=== PATIENT | male | born 1975 | race Caucasian/White ===

== ENCOUNTER 2016-08-08 15:30 | Emergency (ER) | payer OTHER ==
[~2016-08-08] VITALS: Ht 198.1 cm; Wt 136.4 kg
--- NOTE | 2016-08-08 15:23 | ED.REPORT ---
HPI-Overdose/Alcohol Toxicity Date of Service Aug 08, 2016 ED Provider: Colby Jenkins MD Patient is a 41 year old male with no pertinent past medical history who presents to the ED via EMS after an unintentional drug overdose of 60mg of OxyContin after 2pm this afternoon. His daughter found the patient unconscious, with unknown time down, and called EMS immediately. Patient was found to have agonal breathing but he did have a pulse. Patient awoke following administration of 2mg of Narcan and was able to ambulate at the scene. Patient reports experiencing nausea, vomiting, and left sided chest pain since awaking. He describes the chest pain as if he was punched in the chest. He denies shortness of breath. Patient admits that he bought the OxyContin off the street and that the woman who sold it to him mentioned the word Fentanyl. His later reports that he has used this medication multiple times in the past few days but he does not use narcotics regularly. Nursing Notes Stated Complaint: OVERDOSE Nursing Notes Reviewed: Yes (Merlin, meds not reconicled) Allergies: Coded Allergies: Penicillins (Verified Allergy, Unknown, 08/08/16) No Active Prescriptions or Reported Meds General Time Seen by Provider: 16:40 Chief Complaint Drug overdose Modifying Factors: Vomited post ingestion (per EMS, 1 episode) Hx Obtained From: Patient, EMS Arrived By: Ambulance Onset Occurred: 1 - 4 hours ago Symptom Duration: Since onset Location: : Chest Quality: Painful Severity: Current: Mild Associated with: Reports: Chest pain, Nausea Recent Healthcare: No recent doctor visit, No recent hospitalization Risk-Overdose/Alcohol Tox Risk Notes: Patient denies any SI Accidental recreation OD Past Medical History Past Medical History Denies: Coronary artery disease, Diabetes mellitus, Gastritis, Hyperlipidemia Past Surgical History Right knee surgery Reports: Appendectomy Smoking History Current Every Day Smoker Social History Alcohol Use: "Social" Drug Use: THC Other Social History: Good social support, , Lives with children, Local resident Ambulatory Status Independent Review of Systems Respiratory: Denies: Shortness of breath Cardiovascular: Reports: Chest pain (L side), Denies: Syncope GI: Reports: Nausea, Vomiting Neurologic: Reports: Change LOC Psychiatric: Denies: Suicidal ideation Complete sys rev & neg: except as marked. Physical Exam Initial Vital Signs Vital Signs (First) Date Time Temp Pulse Resp B/P Pulse Ox O2 Delivery O2 Flow Rate FiO2 08/08/16 15:41 36.6 89 16 155/93 96 Room Air Initial VS: Reviewed, Vital signs abnormal (for EMS, ) Head / Eyes: Atraumatic, Normocephalic, PERRL ENT: Conjunctiva normal, No scleral icterus Extremities: Vascular intact, Neuro intact, No swelling, No tenderness Skin: Warm, Dry, No cyanosis General/Constitutional: Awake, Alert, No acute distress Respiratory / Chest: Atraumatic, Breath sounds NL, Breath sounds = bilat, No respiratory distress, No rales, No rhonchi, No wheezing Cardiovascular: Heart rate NL, Regular rhythm, Heart sounds NL Abdomen: Atraumatic, Soft, Non-tender Neurologic: Oriented X3, Speech NL, No motor deficits, No sensory deficits, CN II - XII intact Psychiatric: Affect NL, Mood NL, Not suicidal, Not homicidal Interpretation & Diagnostics ECG Interpretation Time: 15:42 Interpreted by: ED physician Normal ECG Interpretation: Normal ECG w/ rate of... (77), No change from prior ECGs Re-Eval/Medical Decision Med Decision/Clinical Course This is a 41-year-old healthy male who was found unresponsive by family member following an intentional snorting of what he thought was OxyContin tablets. He was found unresponsive, and may have had some brief bystander CPR, but had a pulse and responded to Narcan by EMS. He then developed a little bit of nausea times one and vomited, but reports he feels okay, just embarrassed now. he reports a trace bit of left rib soreness following the vomiting, arrival states he has no complaints and he feels okay-with the exception of being embarrassed. He declined any further medication. The patient had a normal exam, is awake alert and appropriate-without overt signs of withdrawal. Reports he uses sporadically. He was observed, had no recurrence of respiratory depression versus clinical signs of re-intoxication. He was seen by the INFORMATION ENGINEER and offered resources, but declined them. He had an EKG which was normal, with no ischemic findings. I am not finding indication for chest radiograph. (Normal vitals, no tenderness , clear lungs, and only trace soreness - I offered a CXR if he was at all concerned, which he declined, and clincally I think that was reasonable.) His being discharged with amoxicillin, and referral information. He is discharged ambulatory in good condition with family. Source of Hx: Old records Re-Evaluation/Progress : Time of Eval: 16:50 Re-Evaluation/Progress Note: Results and plan for discharge is discussed. The patient understands and agrees with the plan. All questions have been answered at this time. Differential Diagnosis: Positive: Overdose, accidental, Overdose, narcotic, Negative: Alcohol abuse, Panic disorder, Personality disorder, Suicidal attempt, Suicidal gesture Counseled Regarding: Diagnosis, Need for follow-up, When/why to return to ED Discharge & Departure Impression: Primary Impression: Opiate overdose Encounter type: initial encounter Injury intent: accidental or unintentional Qualified Code: T40.601A - Poisoning by unspecified narcotics, accidental (unintentional), initial encounter Disposition: Home Discharge Condition All VS Reviewed: Yes Condition: Stable Additional Instructions: 1. 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 2. We recommend following up with your insurer ([employer]) for treatment options ( we strongly recommend this). 3. No driving today. 4. We have provided you with a kit containing naloxone - a kit that a friend or family member could administer if an overdose occurs. 5. Return if new or worsening symptoms. Referrals: [facility] Scribe Attestation Portions of this note were transcribed by Lee Gastelum and Leisa Colmenares. I, Dr. Jenkins personally performed the history, physical exam and medical decision -making; I reviewed and confirmed the accuracy of the information in the transcribed note. Signed by: Shawnee Manriquez, 08/01/2016 and 1802. copies to: [facility] Colby Jenkins MD Aug 08, 2016 15:23 Lee Gastelum Aug 08, 2016 15:37 Leisa Colmenares Aug 08, 2016 17:10
[2016-08-08] MEDS ORDERED: _Naloxone 2 mg/2 mL 2 Syringe Kit (NASAL USE) NASAL PRN (15:35)
[2016-08-08 15:41] VITALS: BP 155/93; PULSE 89; RESP 16; O2SAT 96
[2016-08-08 16:50] VITALS: BP 152/98; RESP 16; O2SAT 96
== END 2016-08-08 16:53 | disposition home or self-care (01) ==
LOC: SED 15:30
DX: T40.2X1A Poisoning by other opioids, accidental (unintentional), initial encounter (principal); Y93.89 Activity, other specified; Y92.89 Other specified places as the place of occurrence of the external cause; Y99.8 Other external cause status; R07.9 Chest pain, unspecified; F17.200 Nicotine dependence, unspecified, uncomplicated; Z88.0 Allergy status to penicillin